=== PATIENT | male | born 1965 | race Caucasian/White ===

== ENCOUNTER 2016-11-25 02:01 | Emergency (ER) | payer BC ==
[2016-11-25 02:07] VITALS: BP 168/77; PULSE 51; RESP 16; TEMP 96.8
[2016-11-25] MEDS ORDERED: HYDROcodone/APAP 5-325MG 1 EACH TAB PO STA (02:32)
--- NOTE | 2016-11-25 02:36 | ED ---
ENT HPI - General Chief complaint: ENT Stated complaint: dental pain Time Seen by Provider: 11/25/16 02:10 Source: patient, RN notes reviewed Mode of arrival: ambulatory Limitations: no limitations - History of Present Illness Initial comments: Patient is a 51-year-old male presents emergency room for evaluation of dental pain. Patient states began having dental pain on Wednesday. Patient states he recently had a crown placed over that tooth about 4 months ago by his dentist. Patient states that he had a crown placed over the tooth above the tooth that's causing him pain about a week ago. Patient states they had to file the tooth down for the teeth to align and did thinks that his tooth is irritated from it. Patient denies any fevers. Patient states been taking Tylenol with no relief of symptoms. Patient states the pain is radiating down his jaw and up into his right ear. Patient denies any shortness of breath or trouble breathing. Patient denies any drainage from the tooth. Patient denies any recent trauma to that tooth. - Related Data Home Medications Medication Instructions Recorded Confirmed Olmesartan [Benicar] 10 mg 11/25/16 Previous Rx's Medication Instructions Recorded Clindamycin [Cleocin] 300 mg PO Q6H 10 Days 11/25/16 HYDROcodone/APAP 5-325MG [[place] 1 tab PO Q6HR PRN #12 tab 11/25/16 5-325] Allergies Allergy/AdvReac Type Severity Reaction Status Date / Time amoxicillin [From Augmentin] Allergy Severe Confusion Verified 11/25/16 02:07 clavulanic acid Allergy Severe Confusion Verified 11/25/16 02:07 [From Augmentin] Review of Systems ROS Statement: Those systems with pertinent positive or pertinent negative responses have been documented in the HPI. ROS Other: All systems not noted in ROS Statement are negative. Past Medical History Past Medical History: Hypertension History of Any Multi-Drug Resistant Organisms: None Reported Past Surgical History: No Surgical Hx Reported Smoking Status: Never smoker Past Alcohol Use History: None Reported Past Drug Use History: None Reported General Exam - General Exam Comments Initial Comments: Sitting in room in no acute distress. Limitations: no limitations General appearance: alert, in no apparent distress Head exam: Present: atraumatic, normocephalic, normal inspection Eye exam: Present: normal appearance Expanded Teeth exam: Present: dental tenderness # (27), other (No mouth floor tenderness. ) Throat exam: normal inspection Neck exam: Present: normal inspection Respiratory exam: Present: normal lung sounds bilaterally. Absent: respiratory distress Cardiovascular Exam: Present: regular rate, normal rhythm, normal heart sounds Extremities exam: Present: normal inspection Back exam: Present: normal inspection Neurological exam: Present: alert, oriented X3, CN II-XII intact, normal gait Psychiatric exam: Present: normal affect, normal mood Skin exam: Present: warm, dry, intact, normal color. Absent: rash Course Vital Signs 11/25/16 02:04 Temperature 96.8 F L Pulse Rate 51 L Respiratory 16 Rate Blood Pressure 168/77 O2 Sat by Pulse 99 Oximetry Medical Decision Making - Medical Decision Making Patient is a 51-year-old male presents emergency room for evaluation of dental pain. Patient states he is going to call his dentist tomorrow morning. Will place patient on antibiotics and pain medications. Return parameters discussed. Case discussed Dr. Bull. Disposition Clinical Impression: Pain, dental Disposition: HOME SELF-CARE Condition: Good Instructions: Toothache (ED) Additional Instructions: Please follow up with a dentist. If you do not have a dentist, you may contact [facility]. Phone number is [phone] for existing clients. For new clients you may call [phone]. Another option is you have is the [facility]. Phone number is [phone]. Medications as directed. [place] gargles. Cold fluids can sometimes help with pain as well. Return to the Emergency Room for any worsening or changing symptoms. Use cold compresses to the outside of the face. Prescriptions: HYDROcodone/APAP 5-325MG [[place] 5-325] 1 tab PO Q6HR PRN #12 tab PRN Reason: Pain Clindamycin [Cleocin] 300 mg PO Q6H 10 Days Referrals: Wiley Kidd DO [Primary Care Provider] - 1-2 days Time of Disposition: 02:34
[2016-11-25] MEDS ORDERED: CLINDAMYCIN 150 MG CAP PO STA (02:37)
== END 2016-11-25 02:44 | disposition home or self-care (01) ==
LOC: EC 02:01
DX: K08.89 Other specified disorders of teeth and supporting structures (principal); Z88.1 Allergy status to other antibiotic agents; Z88.0 Allergy status to penicillin
CPT/HCPCS: 99282

== ENCOUNTER → 2018-08-16 | Outpatient (CLI) | payer BC ==
--- NOTE | 2018-08-16 11:02 | XR ---
Left foot HISTORY: Heel pain, plantar fasciitis 2 views of the left foot There is a plantar calcaneal spur. Some mild arthropathy change is present at the tibiotalar joint. A lignment, joint spaces, bone mineralization are maintained. IMPRESSION: Plantar calcaneal spur.
== END | disposition home or self-care (01) ==
LOC: RADXRYALE 09:03
PROVIDERS: ATTEND Physician Assistant Medical
DX: M77.32 Calcaneal spur, left foot (principal)

== ENCOUNTER → 2019-10-17 | Outpatient (CLI) | payer BC ==
--- NOTE | 2019-10-18 07:41 | ECHOF ---
Referral Reason:R01.1 Cardiac murmur unspecified MEASUREMENTS -------- HEIGHT: 182.9 cm WEIGHT: 113.4 kg BP: RVIDd: 3.7 cm (< 3.3) IVSd: 1.4 cm (0.6 - 1.1) LVIDd: 3.3 cm (3.9 - 5.3) LVPWd: 1.3 cm (0.6 - 1.1) IVSs: 1.4 cm LVIDs: 2.6 cm LVPWs: 1.6 cm LA Diam: 3.1 cm (2.7 - 3.8) LAESV Index (A-L): 24.71 ml/m Ao Diam: 2.9 cm (2.0 - 3.7) AV Cusp: 1.6 cm (1.5 - 2.6) LA Diam: 3.4 cm (2.7 - 3.8) MV EXCURSION: 17.354 mm (> 18.000) MV EF SLOPE: 72 mm/s (70 - 150) EPSS: 0.5 cm MV E Adelfo: 0.74 m/s MV DecT: 229 ms MV A Adelfo: 0.72 m/s MV E/A Ratio: 1.04 AV maxP.14 mmHg AV meanP.38 mmHg AR PHT: 1160 ms RAP: 5.00 mmHg RVSP: 16.53 mmHg FINDINGS -------- Sinus rhythm. This was a technically good study. The left ventricular size is normal. There is moderate concentric left ventricular hypertrophy. O verall left ventricular systolic function is normal with, an EF between 55 - 60 %. The diastolic fi lling pattern is normal for the age of the patient 11.26. The right ventricle is normal in size. The left atrial size is normal. Normal LA size by volume 22+/-6 ml/m2. The right atrial size is normal. Trace to mild aortic regurgitation. There is mild aortic stenosis present. Peak/mean gradient acr oss the Aortic Valve is 22.14mmHg / 10.38mmHg. Mild mitral annular calcification present. Mild mitral regurgitation is present. Mild tricuspid regurgitation present. Right ventricular systolic pressure is normal at < 35 mmHg. There is no evidence of pulmonary hypertension. There is no pulmonic regurgitation present. The aortic root size is normal. There is no pericardial effusion. CONCLUSIONS -------- 1. Sinus rhythm. 2. This was a technically good study. 3. The left ventricular size is normal. 4. There is moderate concentric left ventricular hypertrophy. 5. Overall left ventricular systolic function is normal with, an EF between 55 - 60 %. 6. The diastolic filling pattern is normal for the age of the patient 11.26 7. The right ventricle is normal in size. 8. The left atrial size is normal. 9. Normal LA size by volume 22+/-6 ml/m2. 10. The right atrial size is normal. 11. Trace to mild aortic regurgitation. 12. There is mild aortic stenosis present. 13. Peak/mean gradient across the Aortic Valve is 22.14mmHg / 10.38mmHg. 14. Mild mitral annular calcification present. 15. Mild mitral regurgitation is present. 16. Mild tricuspid regurgitation present. 17. Right ventricular systolic pressure is normal at < 35 mmHg. 18. There is no evidence of pulmonary hypertension. 19. There is no pulmonic regurgitation present. 20. The aortic root size is normal. 21. There is no pericardial effusion. SILK SCREEN PRINTER HELPER: Sol Pabon RDCS
== END | disposition home or self-care (01) ==
LOC: RADECHMAIN 16:06
PROVIDERS: ATTEND Family Medicine
DX: I08.3 Combined rheumatic disorders of mitral, aortic and tricuspid valves (principal)
CPT/HCPCS: 93306

== ENCOUNTER 2020-05-31 20:59 | Inpatient (IN) | payer BC ==
[2020-05-31] MEDS ORDERED: ONDANSETRON 4 MG/2 ML VIAL IVP STA (21:19)
[2020-05-31] MEDS ORDERED: SODIUM CHLORIDE 0.9% 1,000 ML IV STA (21:19)
[2020-05-31] MEDS ORDERED: MORPHINE SULFATE 4 MG/ML SYRINGE IV STA (21:19)
[2020-05-31] MEDS ORDERED: ASPIRIN 81 MG PO STA (22:19)
[2020-05-31] MEDS ORDERED: NITROGLYCERIN SL TABS 0.4 MG TAB SUBLINGUAL PRN (22:19)
[2020-05-31 22:22] LABS: Basophils # (A) 0.1 k/uL (0-0.2); Basophils % (A) 0 %; Eosinophils # (A) 0.2 k/uL (0-0.7); Eosinophils % (A) 2 %; HCT 47.3 % (39.0-53.0); HGB 15.3 gm/dL (13.0-17.5); Lymphocytes # (A) 1.4 k/uL (1.0-4.8); Lymphocytes % (A) 11 %; MCH 29.4 pg (25.0-35.0); MCHC 32.4 g/dL (31.0-37.0); MCV 90.9 fL (80.0-100.0); Mean Platelet Volume 7.3; Monocytes # (A) 0.6 k/uL (0-1.0); Monocytes % (A) 5 %; Neutrophils # (A) 10.1 k/uL (1.3-7.7); Neutrophils % (A) 81 %; Platelet Count 287 k/uL (150-450); RBC 5.21 m/uL (4.30-5.90); RDW 12.5 % (11.5-15.5); WBC 12.4 k/uL (3.8-10.6)
[2020-05-31 22:32] LABS: Sodium 137 mmol/L (137-145)
[2020-05-31 22:35] LABS: ALT 49 U/L (4-49); AST 35 U/L (17-59); African American GFR (CKD) >90 (>60 ml/min/1.73 sqM); Albumin 4.8 g/dL (3.5-5.0); Alkaline Phosphatase 84 U/L (38-126); Anion Gap 7 mmol/L; Blood Urea Nitrogen 22 mg/dL (9-20); Calcium 9.8 mg/dL (8.4-10.2); Carbon Dioxide 30 mmol/L (22-30); Chloride 100 mmol/L (98-107); Glucose 141 mg/dL (74-99); Non-African American GFR(CKD) 84 (>60 ml/min/1.73 sqM); Potassium 4.4 mmol/L (3.5-5.1); Total Bilirubin 0.8 mg/dL (0.2-1.3); Total Protein 8.1 g/dL (6.3-8.2)
[2020-05-31 23:05] LABS: INR 1.3 (<1.2); Partial Thromboplastin Time 26.8 sec (22.0-30.0); Prothrombin Time 13.1 sec (9.0-12.0)
--- NOTE | 2020-05-31 23:12 | CT ---
EXAMINATION TYPE: CT abdomen pelvis w con DATE OF EXAM: 05/31/2020 COMPARISON: None HISTORY: abdominal pain CT DLP: combined DLP 2548.6 mGycm Automated exposure control for dose reduction was used. CONTRAST: Performed with IV Contrast, patient injected with 100 mL of Isovue 370. Lung bases are clear. There is no pleural effusion. Heart size is normal. There is no pericardial eff usion. Liver spleen stomach. Pancreas gallbladder appear normal. Bile ducts are nondilated. There is no adrenal mass. Kidneys show satisfactory contrast opacification. There is no hydronephrosi s. Ureters are not dilated. There is no retroperitoneal adenopathy. Delayed images show normal renal excretion. Bladder distends smoothly. There is no inguinal hernia. There is no free fluid in the pelv is. There are multiple dilated fluid-filled loops of small bowel in the mid abdomen. Distal small bow el is not dilated. There is no evidence of thickened appendix. Small bowel is dilated up to 3.6 cm. Lumbar vertebra have normal alignment. There is narrowing of L5-S1 disc space. Bony pelvis is intact. IMPRESSION: Dilated mid and proximal small bowel consistent with mechanical small bowel obstruction. Transition p oint not identified.
--- NOTE | 2020-05-31 23:18 | ED ---
General Adult HPI - General Source: patient, RN notes reviewed, old records reviewed Mode of arrival: ambulatory Limitations: no limitations <Kevin Parkinson - Last Filed: 05/31/20 23:32> <Gaudencio Bull - Last Filed: 06/06/20 07:30> - General Chief complaint: Nausea/Vomiting/Diarrhea Stated complaint: Abd Pain Time Seen by Provider: 05/31/20 21:15 - History of Present Illness Initial comments: 55-year-old male patient with the for evaluation of lower abdominal pain. Patient reports the pain began at 1 p.m. today. Reports the abdomen feels distended. Patient states he has nausea without emesis. Had a bowel movement earlier today that was normal prior to the onset of pain. Systemic: Pt denies fatigue, fever/chills, rash. Pt denies weakness, night sweats, weight loss. Neuro: Pt denies headache, visual disturbances, syncope or pre-syncope. HEENT: Pt denies ocular discharge or irritation, otalgia, rhinorrhea, pharyngitis or notable lymphadenopathy. Cardiopulmonary: Pt denies chest pain, SOB, heart palpitations, dyspnea on exertion. Abdominal/GI: Pt denies v/d. : Pt denies dysuria, burning w/ urination, frequency/urgency. Denies new onset urinary or bowel incontinence. MSK: Pt denies myalgia, loss of strength or function in extremities. Neuro: Pt denies new onset weakness, paresthesias. (Kevin Parkinson) - Related Data Home Medications Medication Instructions Recorded Confirmed Losartan Potassium 100 mg PO DAILY 05/31/20 05/31/20 Potassium Gluconate 99 mg PO DAILY 05/31/20 05/31/20 Vit A/Vit C/Vit E/Zinc/Copper 1 cap PO DAILY 05/31/20 05/31/20 [ICAPS SOFTGEL] hydroCHLOROthiazide 25 mg PO DAILY 05/31/20 05/31/20 Fexofenadine/Pseudoephedrine 1 tab PO DAILY 06/01/20 06/01/20 [Farheen-D 24 Hour Tablet] Naproxen Sodium [Aleve] 1 tab PO DAILY 06/01/20 06/01/20 Previous Rx's Medication Instructions Recorded Acetaminophen Tab [Tylenol] 650 mg PO Q4HR PRN tab 06/05/20 Pantoprazole Sodium [Protonix] 40 mg PO DAILY #30 tablet. 06/05/20 Allergies Allergy/AdvReac Type Severity Reaction Status Date / Time amoxicillin [From Augmentin] Allergy Severe Confusion Verified 05/31/20 21:37 clavulanic acid Allergy Severe Confusion Verified 05/31/20 21:37 [From Augmentin] Review of Systems ROS Other: All systems not noted in ROS Statement are negative. <Kevin Parkinson - Last Filed: 05/31/20 23:32> ROS Other: All systems not noted in ROS Statement are negative. <Gaudencio Bull - Last Filed: 06/06/20 07:30> ROS Statement: Those systems with pertinent positive or pertinent negative responses have been documented in the HPI. Past Medical History Past Medical History: Hypertension History of Any Multi-Drug Resistant Organisms: None Reported Past Surgical History: No Surgical Hx Reported Past Psychological History: No Psychological Hx Reported Smoking Status: Never smoker Past Alcohol Use History: None Reported Past Drug Use History: None Reported <Kevin Parkinson - Last Filed: 05/31/20 23:32> - Past Family History Mother Additional Family Medical History / Comment(s): valve replacement on heart <Gaudencio Bull - Last Filed: 06/06/20 07:30> General Exam Limitations: no limitations <Kevin Parkinson - Last Filed: 05/31/20 23:32> - General Exam Comments Initial Comments: Constitutional: NAD, AOX3, Pt has pleasant affect. HEENT: NC/AT, trachea midline, neck supple, no lymphadenopathy. External ears appear normal, without discharge. Mucous membranes moist. Eyes PERRLA, EOM intact. There is no scleral icterus. No pallor noted. Cardiopulmonary: RRR, no murmurs, rubs or gallops, no JVD noted. Lungs CTAB in anterior and posterior newberry. No peripheral edema. Abdominal exam: Abdomen soft and mildly distended. Abdomen mildly diffusely tender to palpation. No hepatosplenomegaly. No ecchymosis Neuro: CN II-XII grossly intact. No nuchal rigidity. MSK: No posterior calf tenderness bilaterally, homans sign negative bilaterally. Sensation intact in upper and lower extremities. Full active ROM in upper and lower extremities, 5/5 stregnth. (Kevin Parkinson) Course Vital Signs 05/31/20 06/01/20 21:00 00:00 Temperature 98.3 F Pulse Rate 65 67 Respiratory 20 18 Rate Blood Pressure 135/90 140/80 O2 Sat by Pulse 95 95 Oximetry Medical Decision Making - Lab Data Result diagrams: 05/31/20 22:06 05/31/20 22:06 - EKG Data -: EKG Interpreted by Me (and Dr. Dougherty ) <Kevin Parkinson - Last Filed: 05/31/20 23:32> - Lab Data Result diagrams: 06/04/20 05:54 06/04/20 05:54 <Gaudencio Bull - Last Filed: 06/06/20 07:30> - Medical Decision Making 55-year-old male patient with the chief complaint of one day of abdominal pain. Approximately 8 hours total. Patient will signs are stable, afebrile. Physical exam displayed a mildly distended and mildly diffusely tender abdomen. EKG was performed. This was interpreted by the computer as an acute ST elevated ND. With some perceived ST elevation in V2 and V3. Patient not having any chest pain And there are no reciprocal changes. EKG was promptly displayed to Dr. Dougherty who consulted cardiology, Dr. Zimmerman reviewed ekg and does not believe this is consistent with ischemia. CT chest angiography as well as CT abdomen with pelvis was obtained. This is significant for a small bowel obstruction no clear transition point seen. Patient has a history of umbilical hernia repair about 12 years ago. An NG tube was placed and patient will be admitted for small bowel obstruction. Patient is resting comfortable at this time. Case discussed and pt seen by Dr. Dougherty. (Kevin Parkinson) I saw this patient in conjunction with the physician engineer assistant. I performed independent history and physical exam. Agree with case management. (Gaudencio Bull) - Lab Data Lab Results 05/31/20 05/31/20 05/31/20 Range/Units 22:06 22:06 22:06 WBC 12.4 H (3.8-10.6) k/uL RBC 5.21 (4.30-5.90) m/uL Hgb 15.3 (13.0-17.5) gm/dL Hct 47.3 (39.0-53.0) % MCV 90.9 (80.0-100.0) fL MCH 29.4 (25.0-35.0) pg MCHC 32.4 (31.0-37.0) g/dL RDW 12.5 (11.5-15.5) % Plt Count 287 (150-450) k/uL Neutrophils % 81 % Lymphocytes % 11 % Monocytes % 5 % Eosinophils % 2 % Basophils % 0 % Neutrophils # 10.1 H (1.3-7.7) k/uL Lymphocytes # 1.4 (1.0-4.8) k/uL Monocytes # 0.6 (0-1.0) k/uL Eosinophils # 0.2 (0-0.7) k/uL Basophils # 0.1 (0-0.2) k/uL PT (9.0-12.0) sec INR (<1.2) APTT (22.0-30.0) sec Sodium 137 (137-145) mmol/L Potassium 4.4 (3.5-5.1) mmol/L Chloride 100 (98-107) mmol/L Carbon Dioxide 30 (22-30) mmol/L Anion Gap 7 mmol/L BUN 22 H (9-20) mg/dL Creatinine 1.00 (0.66-1.25) mg/dL Est GFR (CKD-EPI)AfAm >90 (>60 ml/min/1.73 sqM) Est GFR (CKD-EPI)NonAf 84 (>60 ml/min/1.73 sqM) Glucose 141 H (74-99) mg/dL Plasma Lactic Acid Jeff 1.5 (0.7-2.0) mmol/L Calcium 9.8 (8.4-10.2) mg/dL Total Bilirubin 0.8 (0.2-1.3) mg/dL AST 35 (17-59) U/L ALT 49 (4-49) U/L Alkaline Phosphatase 84 (38-126) U/L Troponin I (0.000-0.034) ng/mL Total Protein 8.1 (6.3-8.2) g/dL Albumin 4.8 (3.5-5.0) g/dL Lipase 86 (23-300) U/L 05/31/20 05/31/20 Range/Units 22:06 22:52 WBC (3.8-10.6) k/uL RBC (4.30-5.90) m/uL Hgb (13.0-17.5) gm/dL Hct (39.0-53.0) % MCV (80.0-100.0) fL MCH (25.0-35.0) pg MCHC (31.0-37.0) g/dL RDW (11.5-15.5) % Plt Count (150-450) k/uL Neutrophils % % Lymphocytes % % Monocytes % % Eosinophils % % Basophils % % Neutrophils # (1.3-7.7) k/uL Lymphocytes # (1.0-4.8) k/uL Monocytes # (0-1.0) k/uL Eosinophils # (0-0.7) k/uL Basophils # (0-0.2) k/uL PT 13.1 H (9.0-12.0) sec INR 1.3 H (<1.2) APTT 26.8 (22.0-30.0) sec Sodium (137-145) mmol/L Potassium (3.5-5.1) mmol/L Chloride (98-107) mmol/L Carbon Dioxide (22-30) mmol/L Anion Gap mmol/L BUN (9-20) mg/dL Creatinine (0.66-1.25) mg/dL Est GFR (CKD-EPI)AfAm (>60 ml/min/1.73 sqM) Est GFR (CKD-EPI)NonAf (>60 ml/min/1.73 sqM) Glucose (74-99) mg/dL Plasma Lactic Acid Jeff (0.7-2.0) mmol/L Calcium (8.4-10.2) mg/dL Total Bilirubin (0.2-1.3) mg/dL AST (17-59) U/L ALT (4-49) U/L Alkaline Phosphatase (38-126) U/L Troponin I <0.012 (0.000-0.034) ng/mL Total Protein (6.3-8.2) g/dL Albumin (3.5-5.0) g/dL Lipase (23-300) U/L - EKG Data EKG Comments: Ventricular rate 55 bpm, AK interval 182, QRS 80, QT/QTc 400/382, Sinus bradycardia, Some ST elevation noted in V2,V3 this does appear to be early repolarization. No recrprical changes, no other findings consistent with acute ischemia. This was reviewed by cardiology who also believed this to be nonischemic in nature. (Kevin Parkinson) Disposition Is patient prescribed a controlled substance at d/c from ED?: No <Kevin Parkinson - Last Filed: 05/31/20 23:32> <Gaudencio Bull - Last Filed: 06/06/20 07:30> Clinical Impression: Small bowel obstruction Disposition: ADMITTED IP TO THIS HOSP Condition: Serious
--- NOTE | 2020-05-31 23:22 | CT ---
EXAMINATION TYPE: CT chest angio for PE DATE OF EXAM: 05/31/2020 COMPARISON: None HISTORY: chest pain CT DLP: combined DLP 2548.6 mGycm Automated exposure control for dose reduction was used. CONTRAST: Performed with IV Contrast, patient injected with 100 mL of Isovue 370. There are 3-D post processed images. The lungs are clear of consolidation. There is no pleural effusion. There is no evidence of a pulmona ry mass. There is no mediastinal adenopathy. Thoracic aorta is intact. There is no aneurysm or dissec tion. There are no hilar masses. The bony thorax is intact. Thoracic spine is intact. There is normal contrast opacification of the pulmonary arteries. There are no filling defects. IMPRESSION: Negative CT angiogram of the chest. No evidence of pulmonary embolism.
[2020-05-31] MEDS ORDERED: NALOXONE 0.4 MG/ML 1 ML VIAL IV PRN (23:25)
--- NOTE | 2020-06-01 00:41 | XR ---
EXAMINATION TYPE: XR chest 1V confirm line [facility] DATE OF EXAM: 06/01/2020 COMPARISON: NONE HISTORY: Check tube placement TECHNIQUE: Single view FINDINGS: Heart and mediastinum are normal. Lungs are clear. Diaphragm is normal. Bony thorax is norm al. There are chest leads. There is nasogastric tube in the stomach. IMPRESSION: No active cardiopulmonary disease. Nasogastric tube is in the stomach.
[2020-06-01 01:41] LABS: Glucose,Whole Blood 135 mg/dL (75-99)
[2020-06-01] MEDS: SODIUM CHLORIDE 0.9% 1,000 ML IV SCH ×4 (01:54→20:35)
[2020-06-01 06:32] LABS: Glucose,Whole Blood 99 mg/dL (75-99)
[2020-06-01 06:37] LABS: Appearance,Urine Clear (Clear); Bilirubin,Urine Negative (Negative); Blood,Urine Negative (Negative); Color,Urine Yellow; Glucose,Urine (UA) Negative (Negative); Ketones,Urine Negative (Negative); Leukocyte Esterase,Urine Negative (Negative); Nitrite,Urine Negative (Negative); Protein,Urine Trace (Negative); Urobilinogen,Urine <2.0 mg/dL (<2.0)
[2020-06-01 06:40] LABS: Specific Gravity,Urine >1.050 (1.001-1.035)
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
[2020-06-01 11:42] LABS: Glucose,Whole Blood 97 mg/dL (75-99)
[2020-06-01] MEDS ORDERED: ALPRAZolam 0.25 MG TAB PO PRN (16:00)
[2020-06-01] MEDS ORDERED: TEMAZEPAM 15 MG CAP PO PRN (16:00)
[2020-06-01] MEDS ORDERED: hydrALAZINE HCL 20 MG/ML 1 ML VIAL IVP PRN (16:00)
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
[2020-06-01 17:19] LABS: Glucose,Whole Blood 90 mg/dL (75-99)
[2020-06-01] MEDS: PANTOPRAZOLE 40 MG/10 ML VIAL IVP SCH ×2 (18:09→20:34)
[2020-06-02 00:18] LABS: Glucose,Whole Blood 86 mg/dL (75-99)
[2020-06-02 06:35] LABS: Glucose,Whole Blood 87 mg/dL (75-99)
[2020-06-02 06:54] LABS: Basophils % (A) 0 %; Eosinophils # (A) 0.5 k/uL (0-0.7); Eosinophils % (A) 5 %; HCT 42.8 % (39.0-53.0); Lymphocytes # (A) 2.1 k/uL (1.0-4.8); Lymphocytes % (A) 20 %; MCH 30.7 pg (25.0-35.0); MCHC 32.7 g/dL (31.0-37.0); MCV 93.8 fL (80.0-100.0); Mean Platelet Volume 7.5; Monocytes # (A) 0.7 k/uL (0-1.0); Monocytes % (A) 6 %; Neutrophils # (A) 7.1 k/uL (1.3-7.7); Neutrophils % (A) 68 %; Platelet Count 229 k/uL (150-450); RBC 4.56 m/uL (4.30-5.90); WBC 10.5 k/uL (3.8-10.6)
[2020-06-02] MEDS ORDERED: ACETAMINOPHEN TAB 325 MG TAB PO PRN (09:17)
[2020-06-02] MEDS: PANTOPRAZOLE 40 MG/10 ML VIAL IVP SCH ×2 (09:34→20:19)
[2020-06-02] MEDS: SODIUM CHLORIDE 0.9% 1,000 ML IV SCH ×2 (09:40→20:22)
[2020-06-02 09:41] LABS: Anion Gap 6.2 mmol/L (4.00-12.00); BUN/Creat Ratio 17.78 Ratio (12.00-20.00); Calcium 8.5 mg/dL (8.7-10.3); Carbon Dioxide 27.8 mmol/L (21.6-31.8); Non-African American GFR(CKD) 95.8 (60.0-200.0); Potassium 3.9 mmol/L (3.5-5.5)
--- NOTE | 2020-06-02 10:18 | P.PN ---
Subjective Progress Note Date: 06/02/20 Patient feeling better today, passing small amount of flatus. No BM. 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 [id number] TOÑO Rx#:[id number] Output: Gastric Drainage 350 350 Urine 775 Other: Voiding Method Toilet Toilet Urinal Urinal # Voids 3 - Constitutional General appearance: Present: cooperative - Respiratory Details: nonlabored - Cardiovascular Rhythm: regular - Gastrointestinal Gastrointestinal Comment(s): soft, distention improved. nontender - Psychiatric Psychiatric: Present: A&O x's 3 - Labs CBC & Chem 7: 06/02/20 06:10 06/02/20 06:10 Labs: Abnormal Lab Results - Last 24 Hours (Table) 06/02/20 Range/Units 06:10 Calcium 8.5 L (8.7-10.3) mg/dL Assessment and Plan Assessment: SBO Plan: SBO likely secondary to adhesions from previous surgery. Cont with NGT until further bowel function returns. No plans for acute surgical intervention at this time. Will continue to follow
[2020-06-02 12:27] LABS: Glucose,Whole Blood 82 mg/dL (75-99)
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
[2020-06-02] MEDS ORDERED: BENZOCAINE SPRAY 1 CAN MUCOUS MEM PRN (19:30)
[2020-06-02 22:50] LABS: INR 0.97 (0.90-1.11); Prothrombin Time 10.4 sec (9.9-11.9)
[2020-06-03 06:04] LABS: Basophils % (A) 0 %; Eosinophils # (A) 0.5 k/uL (0-0.7); Eosinophils % (A) 5 %; HCT 41.8 % (39.0-53.0); HGB 13.8 gm/dL (13.0-17.5); Lymphocytes # (A) 2.1 k/uL (1.0-4.8); Lymphocytes % (A) 18 %; MCH 30.5 pg (25.0-35.0); MCV 92.3 fL (80.0-100.0); Mean Platelet Volume 7.4; Monocytes # (A) 0.7 k/uL (0-1.0); Monocytes % (A) 6 %; Neutrophils # (A) 7.9 k/uL (1.3-7.7); Neutrophils % (A) 70 %; Platelet Count 219 k/uL (150-450); RBC 4.53 m/uL (4.30-5.90); RDW 12.5 % (11.5-15.5); WBC 11.3 k/uL (3.8-10.6)
[2020-06-03] MEDS: PANTOPRAZOLE 40 MG/10 ML VIAL IVP SCH ×2 (08:19→19:57)
[2020-06-03 09:07] LABS: Anion Gap 8.4 mmol/L (4.00-12.00); BUN/Creat Ratio 16.67 Ratio (12.00-20.00); Calcium 8.6 mg/dL (8.7-10.3); Carbon Dioxide 26.6 mmol/L (21.6-31.8); Non-African American GFR(CKD) 95.8 (60.0-200.0); Potassium 3.9 mmol/L (3.5-5.5)
--- NOTE | 2020-06-03 11:28 | XR ---
EXAMINATION TYPE: XR abdomen 1V DATE OF EXAM: 06/03/2020 COMPARISON: NONE HISTORY: Abdominal pain TECHNIQUE: One view abdominal series FINDINGS: The osseous structures are intact. The bowel gas pattern is nonspecific. Arthropathy of the hips. 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 Suggestion of possible NG tube at the level of the distal esophagus. IMPRESSION: 1. NG tube appears only at the level of the distal esophagus correlate for advancement repositioning. . Gas pattern is nonspecific with retained fecal debris throughout the colon.
[2020-06-03] MEDS: SODIUM CHLORIDE 0.9% 1,000 ML IV SCH (14:36)
[2020-06-03] MEDS ORDERED: ONDANSETRON 4 MG/2 ML VIAL IVP PRN (14:44)
[2020-06-03] MEDS: MORPHINE SULFATE 4 MG/ML SYRINGE IVP PRN ×2 (14:49→22:23)
--- NOTE | 2020-06-03 15:51 | P.PN ---
Subjective Progress Note Date: 06/03/20 Patient denies Bm only minimal flatus today, no complaints of pain. Objective - Vital Signs Vital signs: Vital Signs Temp 98.4 F 06/03/20 12:20 Pulse 76 06/03/20 12:20 Resp 16 06/03/20 12:20 BP 144/75 06/03/20 12:20 Pulse Ox 97 06/03/20 12:20 Intake & Output 06/02/20 06/03/20 06/03/20 18:59 06:59 18:59 Intake Total 900 600 Output Total 1000 910 Balance -1000 -10 600 Intake: Intake, IV Titration 900 600 Amount Sodium Chloride 0.9% 1, 900 600 000 ml @ 75 mls/hr IV . [id number] TOÑO Rx#:[id number] Output: Gastric Drainage 310 Urine 1000 600 Other: Voiding Method Toilet Urinal Urinal Urinal # Voids 1 - Constitutional General appearance: Present: cooperative - Cardiovascular Rhythm: regular - Gastrointestinal Gastrointestinal Comment(s): soft, NT, mild distention - Psychiatric Psychiatric: Present: A&O x's 3 - Labs CBC & Chem 7: 06/03/20 05:04 06/03/20 05:04 Labs: Abnormal Lab Results - Last 24 Hours (Table) 06/03/20 06/03/20 Range/Units 05:04 05:04 WBC 11.3 H (3.8-10.6) k/uL Neutrophils # 7.9 H (1.3-7.7) k/uL Calcium 8.6 L (8.7-10.3) mg/dL Assessment and Plan Assessment: SBO Plan: If patient does not open up tonight will plan for small bowel followthrough tomorrow. Patient has a nonspecific abdomen on xray with gas and stool in colon. He also is soft and nontender. No plans for immediate surgery. Further recs to follow
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
[2020-06-03 21:37] LABS: Glucose,Whole Blood 76 mg/dL (75-99)
[2020-06-04] MEDS: SODIUM CHLORIDE 0.9% 1,000 ML IV SCH ×2 (03:48→17:30)
[2020-06-04 06:40] LABS: Basophils % (A) 0 %; Eosinophils # (A) 0.3 k/uL (0-0.7); Eosinophils % (A) 2 %; Lymphocytes # (A) 1.8 k/uL (1.0-4.8); Lymphocytes % (A) 16 %; MCHC 32.4 g/dL (31.0-37.0); MCV 92.5 fL (80.0-100.0); Mean Platelet Volume 7.5; Monocytes # (A) 0.9 k/uL (0-1.0); Monocytes % (A) 8 %; Neutrophils # (A) 7.9 k/uL (1.3-7.7); Neutrophils % (A) 72 %; Platelet Count 219 k/uL (150-450); RBC 4.32 m/uL (4.30-5.90); RDW 12.2 % (11.5-15.5); WBC 10.9 k/uL (3.8-10.6)
[2020-06-04] MEDS: PANTOPRAZOLE 40 MG/10 ML VIAL IVP SCH ×2 (08:16→21:15)
[2020-06-04 09:06] LABS: Anion Gap 10.8 mmol/L (4.00-12.00); BUN/Creat Ratio 15.56 Ratio (12.00-20.00); Calcium 8.5 mg/dL (8.7-10.3); Carbon Dioxide 25.2 mmol/L (21.6-31.8); Non-African American GFR(CKD) 95.8 (60.0-200.0)
[2020-06-04 13:00] VITALS: BMI 33.5
[2020-06-04] MEDS: BENZOCAINE/MENTHOL LOZENG 1 EACH LOZENGE MUCOUS MEM PRN (13:27)
--- NOTE | 2020-06-04 13:49 | FL ---
EXAMINATION TYPE: FL small bowel follow through DATE OF EXAM: 06/04/2020 COMPARISON: None HISTORY: Small bowel obstruction. Umbilical hernia TECHNIQUE: Single contrast technique is followed the administration of water-soluble contrast is a na sogastric tube. FINDINGS: Fluoroscopy time 18 seconds Images: 9 There is rapid transit of the contrast through the colon. Terminal ileum is identified within 30 monse emmanuel. Small bowel is visualized appears normal. Skull view: Pulmonary abdominal films obtained. The nasogastric tube is within the mid esophagus. The nasogastric tube was advanced by the patient's nurse and contrast was placed through the nasogastric tube. Jejunal and ileal fold pattern appears normal. IMPRESSION: 1. No evidence of small bowel obstruction
[2020-06-04] MEDS ORDERED: PSEUDOEPHEDRINE 12HR 120 MG TABLET.ER PO PRN (16:20)
--- NOTE | 2020-06-04 17:12 | P.PN ---
Subjective Progress Note Date: 06/04/20 Patient doing well, had 3 large BM after small bowel FT. No complaints. NGT pulled and started clears Objective - Vital Signs Vital signs: Vital Signs Temp 98.2 F 06/04/20 13:00 Pulse 64 06/04/20 13:00 Resp 16 06/04/20 13:00 BP 138/71 06/04/20 13:00 Pulse Ox 95 06/04/20 13:00 Intake & Output 06/03/20 06/04/20 06/04/20 18:59 06:59 18:59 Intake Total 600 825 Output Total 200 650 Balance 600 625 -650 Weight 112.037 kg Intake: Intake, IV Titration 600 825 Amount Sodium Chloride 0.9% 1, 600 825 000 ml @ 75 mls/hr IV . [id number] TOÑO Rx#:[id number] Output: Urine 200 650 Other: Voiding Method Urinal Urinal Urinal # Voids 1 - Constitutional General appearance: Present: cooperative - Respiratory Details: nonlabored - Cardiovascular Rhythm: regular - Gastrointestinal Gastrointestinal Comment(s): S/NT/ND - Psychiatric Psychiatric: Present: A&O x's 3 - Labs CBC & Chem 7: 06/04/20 05:54 06/04/20 05:54 Labs: Abnormal Lab Results - Last 24 Hours (Table) 06/04/20 06/04/20 Range/Units 05:54 05:54 WBC 10.9 H (3.8-10.6) k/uL Neutrophils # 7.9 H (1.3-7.7) k/uL Calcium 8.5 L (8.7-10.3) mg/dL Assessment and Plan Assessment: SBO Plan: SBO is resolved, contrast in colon on small bowel followthrough, NGT DC today and start clears. Advance diet as tolerated to soft tomorrow. No plans for surgical intervention, patient will be stable for DC when tolerating soft diet
[2020-06-04] MEDS: LORATADINE 10 MG TAB PO SCH (17:28)
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
[2020-06-05] MEDS: SODIUM CHLORIDE 0.9% 1,000 ML IV SCH ×2 (03:52→17:04)
[2020-06-05] MEDS: BENZOCAINE/MENTHOL LOZENG 1 EACH LOZENGE MUCOUS MEM PRN (03:55)
[2020-06-05] MEDS: LORATADINE 10 MG TAB PO SCH (09:10)
[2020-06-05] MEDS: PANTOPRAZOLE 40 MG/10 ML VIAL IVP SCH ×2 (09:10→20:54)
--- NOTE | 2020-06-05 15:53 | XR ---
2 view abdomen HISTORY: Abnormal CT Correlation to CT scan 05/31/2020 2 views the abdomen submitted on 5 images There is contrast material within the colon extending to the rectum. Lung bases are clear. No evident bowel obstruction or pneumoperitoneum. IMPRESSION: Contrast material has coursed to the level of the rectum.
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
[2020-06-06] MEDS ORDERED: ONDANSETRON 4 MG/2 ML VIAL IVP PRN (02:06)
[2020-06-06] MEDS ORDERED: NALOXONE 0.4 MG/ML 1 ML VIAL IV PRN (02:06)
[2020-06-06] MEDS: SODIUM CHLORIDE 0.9% 1,000 ML IV SCH ×2 (06:05→21:06)
[2020-06-06] MEDS: PANTOPRAZOLE 40 MG/10 ML VIAL IVP SCH ×2 (08:07→20:56)
[2020-06-06] MEDS: LORATADINE 10 MG TAB PO SCH (10:19)
[2020-06-06 11:37] LABS: Basophils % (A) 0 %; Eosinophils # (A) 0.6 k/uL (0-0.7); Eosinophils % (A) 7 %; HCT 42.5 % (39.0-53.0); HGB 13.6 gm/dL (13.0-17.5); Lymphocytes # (A) 2.2 k/uL (1.0-4.8); Lymphocytes % (A) 27 %; MCH 29.4 pg (25.0-35.0); Mean Platelet Volume 7.6; Monocytes # (A) 0.4 k/uL (0-1.0); Monocytes % (A) 5 %; Neutrophils # (A) 4.9 k/uL (1.3-7.7); Neutrophils % (A) 60 %; Platelet Count 277 k/uL (150-450); RBC 4.62 m/uL (4.30-5.90); RDW 12.5 % (11.5-15.5); WBC 8.1 k/uL (3.8-10.6)
--- NOTE | 2020-06-06 11:48 | P.PN ---
Subjective Progress Note Date: 06/06/20 Patient did not tolerate soft diet, he is now complaining of abdominal bloating Objective - Vital Signs Vital signs: Vital Signs Temp 97.9 F 06/06/20 04:46 Pulse 55 L 06/06/20 04:46 Resp 15 06/06/20 04:46 BP 130/72 06/06/20 04:46 Pulse Ox 97 06/06/20 04:46 Intake & Output 06/05/20 06/06/20 06/06/20 18:59 06:59 18:59 Intake Total 800 900 Output Total 250 Balance 550 900 Intake: Intake, IV Titration 900 Amount Sodium Chloride 0.9% 1, 900 000 ml @ 75 mls/hr IV . [id number] TOÑO Rx#:[id number] Oral 800 Output: Urine 250 Other: Voiding Method Toilet Toilet # Voids 2 0 # Bowel Movements 0 - Constitutional General appearance: Present: cooperative - Respiratory Details: nonlabored - Cardiovascular Rhythm: regular - Gastrointestinal Gastrointestinal Comment(s): S/distended, nontender - Labs CBC & Chem 7: 06/06/20 11:10 06/04/20 05:54 Assessment and Plan Assessment: Partial SBO Plan: Patient bowel obstruction was resolved, he has a nonobstructive patern on xray and small bowel followthrough showed contrast through to the colon. However sharon ent is now distended again if he does not open up by tomorrow will plan for CT abd/pelvis
--- NOTE | 2020-06-06 11:49 | P.PN ---
Subjective Progress Note Date: 06/06/20 No change overnight, no NV but no Bowel function Objective - Vital Signs Vital signs: Vital Signs Temp 98.3 F 06/06/20 11:46 Pulse 53 L 06/06/20 11:46 Resp 15 06/06/20 11:46 BP 142/85 06/06/20 11:46 Pulse Ox 96 06/06/20 11:46 Intake & Output 06/05/20 06/06/20 06/06/20 18:59 06:59 18:59 Intake Total 800 900 Output Total 250 Balance 550 900 Intake: Intake, IV Titration 900 Amount Sodium Chloride 0.9% 1, 900 000 ml @ 75 mls/hr IV . [id number] TOÑO Rx#:[id number] Oral 800 Output: Urine 250 Other: Voiding Method Toilet Toilet # Voids 2 0 # Bowel Movements 0 - Constitutional General appearance: Present: cooperative - Respiratory Details: nonlabored - Gastrointestinal Gastrointestinal Comment(s): S/NT distended - Labs CBC & Chem 7: 06/06/20 11:10 06/04/20 05:54 Assessment and Plan Assessment: Partial SBO Plan: CT abdomen pelvis today, further recs to follow.
[2020-06-06 11:57] LABS: ALT 24 U/L (4-49); AST 21 U/L (17-59); African American GFR (CKD) >90 (>60 ml/min/1.73 sqM); Albumin 3.9 g/dL (3.5-5.0); Albumin/Globulin Ratio 1.3; Alkaline Phosphatase 63 U/L (38-126); Anion Gap 6 mmol/L; Blood Urea Nitrogen 10 mg/dL (9-20); Carbon Dioxide 30 mmol/L (22-30); Chloride 104 mmol/L (98-107); Globulin 3.1 g/dL; Glucose 99 mg/dL (74-99); Non-African American GFR(CKD) >90 (>60 ml/min/1.73 sqM); Potassium 4.1 mmol/L (3.5-5.1); Sodium 140 mmol/L (137-145); Total Bilirubin 0.7 mg/dL (0.2-1.3)
[2020-06-06] MEDS: IOPAMIDOL CONTRAST (ORAL USE) VIAL PO PRN ×2 (12:04→12:57)
--- NOTE | 2020-06-06 16:16 | CT ---
EXAMINATION TYPE: CT abdomen pelvis w con DATE OF EXAM: 06/06/2020 COMPARISON: 05/31/2020 INDICATION: Recent SBO. Abdominal distention and pain. DLP: 1759.6 mGycm, Automated exposure control for dose reduction was used. CONTRAST: 100 mL of Isovue 300. Study performed with Oral Contrast TECHNIQUE: Axial images were obtained from above the diaphragm to the pubic rami in the axial plane a t 5 mm thick sections. Reconstructed images are reviewed on the computer in the coronal plane. FINDINGS: Small hiatal hernia is present Limited CT sections are obtained the lung bases. The lung bases are clear. CT ABDOMEN: Liver: Normal fatty infiltration liver may be present. Spleen: Normal Pancreas: Normal Adrenal glands: The adrenal glands are normal. Gallbladder: Normal Kidneys: No masses are evident. No hydronephrosis is present. No cysts are present. Delayed images were obtained through the kidneys, which remain unremarkable. Aorta: Normal Inferior vena cava: Normal. CT PELVIS: Loops of bowel within the abdomen and pelvis are normal. Oral contrast extends to to the rectum. No s uspicious dilated small bowel loops are evident. The colon is nondistended. There are loops of bow el which are incompletely distended or lack oral contrast limiting their evaluation. Appendix: Normal as visualized. Small portions visualized. No dilated tubular structures or inflammat ory changes are evident Urinary bladder: Normal. Genitourinary structures: Prostate is normal Osseous structures: No suspicious lytic or sclerotic lesions. IMPRESSIONS: 1. Unremarkable CT abdomen pelvis 2. Resolution previous small bowel obstruction
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
[2020-06-07 06:17] LABS: Basophils % (A) 0 %; Eosinophils # (A) 0.5 k/uL (0-0.7); Eosinophils % (A) 7 %; HCT 39.6 % (39.0-53.0); HGB 12.9 gm/dL (13.0-17.5); Lymphocytes % (A) 27 %; MCH 29.5 pg (25.0-35.0); MCHC 32.5 g/dL (31.0-37.0); MCV 90.8 fL (80.0-100.0); Mean Platelet Volume 7.6; Monocytes # (A) 0.4 k/uL (0-1.0); Monocytes % (A) 6 %; Neutrophils # (A) 4.3 k/uL (1.3-7.7); Neutrophils % (A) 59 %; Platelet Count 261 k/uL (150-450); RBC 4.36 m/uL (4.30-5.90); RDW 11.9 % (11.5-15.5); WBC 7.3 k/uL (3.8-10.6)
[2020-06-07] MEDS: LORATADINE 10 MG TAB PO SCH (08:50)
[2020-06-07] MEDS: PANTOPRAZOLE 40 MG/10 ML VIAL IVP SCH ×2 (08:50→20:09)
[2020-06-07 09:36] LABS: Anion Gap 8.8 mmol/L (4.00-12.00); Calcium 8.8 mg/dL (8.7-10.3); Carbon Dioxide 27.2 mmol/L (21.6-31.8); Non-African American GFR(CKD) 95.8 (60.0-200.0); Potassium 4.1 mmol/L (3.5-5.5)
--- NOTE | 2020-06-07 11:33 | P.PN ---
Subjective Progress Note Date: 06/07/20 Had BM this AM. no NV. No obstructive signs on CT Objective - Vital Signs Vital signs: Vital Signs Temp 98.2 F 06/07/20 05:00 Pulse 51 L 06/07/20 05:00 Resp 18 06/07/20 05:00 BP 148/79 06/07/20 05:00 Pulse Ox 95 06/07/20 05:00 Intake & Output 06/06/20 06/07/20 06/07/20 18:59 06:59 18:59 Intake Total 900 Balance 900 Weight 112.037 kg Intake: Intake, IV Titration 900 Amount Sodium Chloride 0.9% 1, 900 000 ml @ 75 mls/hr IV . [id number] TOÑO Rx#:[id number] Other: Voiding Method Toilet Toilet # Voids 3 0 # Bowel Movements 1 0 - Constitutional General appearance: Present: cooperative - Cardiovascular Rhythm: regular - Gastrointestinal Gastrointestinal Comment(s): S/NT/mild distention - Labs CBC & Chem 7: 06/07/20 05:26 06/07/20 05:26 Labs: Abnormal Lab Results - Last 24 Hours (Table) 06/07/20 06/07/20 Range/Units 05:26 05:26 Hgb 12.9 L (13.0-17.5) gm/dL BUN/Creatinine Ratio 10.00 L (12.00-20.00) Ratio Assessment and Plan Assessment: Partial SBO Plan: Both CT and SBFT showed no obstruction. Patient can start on reglan and a clear liquid diet. He should be able to be DC home on clears or fulls when tolerating tomorrow
[2020-06-07] MEDS: METOCLOPRAMIDE 5 MG/ML 2 ML VIAL IVP SCH ×3 (12:44→23:12)
[2020-06-07] MEDS: SODIUM CHLORIDE 0.9% 1,000 ML IV SCH ×2 (12:46→20:18)
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
[2020-06-08 03:54] LABS: Basophils % (A) 0 %; Eosinophils # (A) 0.5 k/uL (0-0.7); Eosinophils % (A) 7 %; HCT 40.7 % (39.0-53.0); HGB 13.1 gm/dL (13.0-17.5); Lymphocytes # (A) 2.3 k/uL (1.0-4.8); Lymphocytes % (A) 31 %; MCH 29.7 pg (25.0-35.0); MCHC 32.2 g/dL (31.0-37.0); MCV 92.2 fL (80.0-100.0); Mean Platelet Volume 7.3; Monocytes # (A) 0.5 k/uL (0-1.0); Monocytes % (A) 7 %; Neutrophils # (A) 4.1 k/uL (1.3-7.7); Neutrophils % (A) 54 %; Platelet Count 286 k/uL (150-450); RBC 4.42 m/uL (4.30-5.90); RDW 12.5 % (11.5-15.5); WBC 7.6 k/uL (3.8-10.6)
[2020-06-08] MEDS: METOCLOPRAMIDE 5 MG/ML 2 ML VIAL IVP SCH ×2 (06:26→13:05)
[2020-06-08] MEDS: PANTOPRAZOLE 40 MG/10 ML VIAL IVP SCH (07:34)
[2020-06-08] MEDS: LORATADINE 10 MG TAB PO SCH (07:35)
[2020-06-08 09:10] LABS: African American GFR (CKD) 116.6 (60.0-200.0); Anion Gap 9.1 mmol/L (4.00-12.00); BUN/Creat Ratio 12.5 Ratio (12.00-20.00); Calcium 8.7 mg/dL (8.7-10.3); Carbon Dioxide 26.9 mmol/L (21.6-31.8); Non-African American GFR(CKD) 100.6 (60.0-200.0)
--- NOTE | 2020-06-08 09:47 | P.PN ---
Subjective Progress Note Date: 06/08/20 Patient seen and examined at bedside. Had a bowel movement this morning. Tolerating clear liquid diet. Minimal abdominal distention. Objective - Vital Signs Vital signs: Vital Signs Temp 97.4 F L 06/08/20 05:00 Pulse 56 L 06/08/20 05:00 Resp 16 06/08/20 05:00 BP 138/74 06/08/20 05:00 Pulse Ox 97 06/08/20 07:37 Intake & Output 06/07/20 06/08/20 06/08/20 18:59 06:59 18:59 Intake Total 600 825 Balance 600 825 Weight 112.037 kg Intake: Intake, IV Titration 600 825 Amount Sodium Chloride 0.9% 1, 600 825 000 ml @ 75 mls/hr IV . [id number] [facility] Rx#:[id number] Other: Voiding Method Toilet Toilet - Constitutional General appearance: Present: cooperative, no acute distress - Gastrointestinal Gastrointestinal Comment(s): Soft, nontender, mildly distended, no rebound, no guarding - Psychiatric Psychiatric: Present: A&O x's 3 - Labs CBC & Chem 7: 06/08/20 03:23 06/08/20 03:23 Assessment and Plan (1) Small bowel obstruction Narrative/Plan: Small bowel obstruction appears to be resolved. Patient has evidence through small bowel follow-through and CT of the abdomen and pelvis showing no obvious obstruction at this time. Patient also was having bowel movements. Advance to full liquid diet. Recommended slow advancement of diet due to the patient's bloating and mild distention. Surgically stable for discharge. Current Visit: Yes Status: Acute Code(s): K56.609 - UNSP INTESTNL OBST, UNSP TO PARTIAL VERSUS COMPLETE OBST SNOMED Code(s): 763348741
[2020-06-08] MEDS: SODIUM CHLORIDE 0.9% 1,000 ML IV SCH (10:02)
[2020-06-08 12:28] VITALS: BP 153/79; PULSE 50; RESP 19; TEMP 98
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
== END 2020-06-08 15:18 | disposition home or self-care (01) | DRG 390 ==
LOC: EC 20:59 → 6NMEDSUR 23:31
PROVIDERS: ADMIT Hospitalist; ATTEND Hospitalist
PROC: 0D9670Z Drainage of Stomach with Drainage Device, Via Natural or Artificial Opening (ICD-10-PCS; principal; 2020-05-31)
DX: K91.31 Postprocedural partial intestinal obstruction (principal); I10 Essential (primary) hypertension; E66.9 Obesity, unspecified; E11.9 Type 2 diabetes mellitus without complications; R14.0 Abdominal distension (gaseous); M19.012 Primary osteoarthritis, left shoulder; R79.1 Abnormal coagulation profile; Z79.899 Other long term (current) drug therapy; Z88.0 Allergy status to penicillin; Z88.8 Allergy status to other drugs, medicaments and biological substances; Z82.49 Family history of ischemic heart disease and other diseases of the circulatory system; Z68.33 Body mass index [BMI] 33.0-33.9, adult; Z98.890 Other specified postprocedural states; Z87.828 Personal history of other (healed) physical injury and trauma
CPT/HCPCS: 36415; 71275; 74018; 74019; 74177; 74248; 80048; 80053; 81003; 83605; 83690; 84484; 85025; 85610; 85730; 93005; 94760; 96361; 96374; 96375; 99285

== ENCOUNTER → 2020-06-26 | Outpatient (CLI) | payer BC ==
--- NOTE | 2020-06-26 16:48 | XR ---
Right knee HISTORY: Right knee pain 3 views of the right knee, correlation prior exam 09/26/2012 There is spurring at the patellofemoral joint, medial compartment. Suprapatellar increased density bonner ggests joint effusion. Bone mineralization, joint spaces and alignment are maintained. IMPRESSION: Osteoarthritis. Joint effusion.
== END | disposition home or self-care (01) ==
LOC: RADXRYALE 14:13
PROVIDERS: ATTEND Physician Assistant Medical
DX: M17.11 Unilateral primary osteoarthritis, right knee (principal); M23.303 Other meniscus derangements, unspecified medial meniscus, right knee

== ENCOUNTER → 2020-10-15 | Outpatient (CLI) | payer BC, OTHER ==
--- NOTE | 2020-10-15 21:19 | MR ---
EXAMINATION TYPE: MR knee RT wo con DATE OF EXAM: 10/15/2020 COMPARISON: Radiographs 06/26/2020. HISTORY: Right knee pain for 2 months. TECHNIQUE: Multiplanar, multisequence imaging of the right knee is performed without IV contrast. FINDINGS: MEDIAL MENISCUS: Complex tear of the medial meniscus posterior horn and body with predominant horizon capo oblique component. LATERAL MENISCUS: Anterior and posterior horns are intact without tear. CRUCIATE LIGAMENTS: The anterior and posterior cruciate ligaments are intact and unremarkable. COLLATERAL LIGAMENTS: The medial collateral ligament and lateral collateral ligament complex are inta ct and unremarkable. EXTENSOR MECHANISM: Visualized quadriceps and patellar tendons are intact. EFFUSION: No significant suprapatellar joint effusion. POPLITEAL CYST: Moderate sized popliteal/otoole cyst with minimal surrounding edema. TRICOMPARTMENT SPACES: Mild to moderate narrowing of the medial compartment and mild of the patellofe moral. CARTILAGE: Moderate sized partial thickness chondral defect of the medial compartment and small of th e patellofemoral compartment. No significant chondral defect of the lateral compartment. BONE MARROW SIGNAL: No focal abnormal marrow signal is appreciated. OTHER: No additional significant abnormality is appreciated. IMPRESSION: Medial meniscal posterior horn/body tear. Moderate sized Otoole's cyst with suggestion of mild leaking. Mild to moderate chondromalacia with partial thickness chondral defects of the medial patellofemoral compartments.
== END | disposition home or self-care (01) ==
LOC: RADMRIMAIN 15:42
PROVIDERS: ATTEND Physician Assistant
DX: S83.241A Other tear of medial meniscus, current injury, right knee, initial encounter (principal); M71.21 Synovial cyst of popliteal space [Baker], right knee; M94.261 Chondromalacia, right knee; M25.861 Other specified joint disorders, right knee

== ENCOUNTER → 2021-11-20 | Outpatient (CLI) | payer BC ==
--- NOTE | 2021-11-20 18:04 | XR ---
Right hand HISTORY: Pain and stiffness 3 views the right hand Bone mineralization, joint spaces and alignment are maintained with exception of joint space loss the metacarpophalangeal joint of the third digit. There is no fracture or dislocation. Hooked osteophyte s noted at the distal second and third metacarpals. Some remodeling is present at the radiocarpal marla nt. No fracture or dislocation. IMPRESSION: Consider such entities as hemachromatosis and Crystal deposition arthropathy, osteoarthri tis
== END | disposition home or self-care (01) ==
LOC: RADXRYALE 15:42
PROVIDERS: ATTEND Physician Assistant Medical
DX: M19.041 Primary osteoarthritis, right hand (principal)

== ENCOUNTER → 2022-12-07 | Outpatient (CLI) | payer BC ==
--- NOTE | 2022-12-08 09:50 | CA ---
Transthoracic Echo Report Name: Devan Carrion Age: 57 Gender: M : 1965 Exam Date: 12/07/2022 13:59 Exam Location: [facility] Ht (in): 71 Wt (lb): 261 Ordering Physician: Wiley Kidd DO Attending/Referring Phys: Tamiko Beasley PAC Test Facility Engineer Apolinar Jiménez RDCS Procedure CPT: Indications: i35.0 Cardiac Hx: HTN; Obesity Technical Quality: Poor Contrast 1: Lumason Total Dose (mL): 4 Contrast 2: Total Dose (mL): MEASUREMENTS (Male / Female) Normal Values 2D ECHO LV Diastolic Diameter PLAX 4.2 cm 4.2 - 5.9 / 3.9 - 5.3 cm LV Systolic Diameter PLAX 2.6 cm LV Fractional Shortening PLAX 38.5 % IVS Diastolic Thickness 1.1 cm 0.6 - 1.0 / 0.6 - 0.9 cm IVS Systolic Thickness 1.9 cm LVPW Diastolic Thickness 1.1 cm 0.6 - 1.0 / 0.6 - 0.9 cm LVPW Systolic Thickness 1.8 cm LV Relative Wall Thickness 0.5 LVOT Diameter 1.8 cm LA Systolic Diameter LX 2.9 cm 3.0 - 4.0 / 2.7 - 3.8 cm LV Diastolic Volume MOD BP 142.3 cm??? 67 - 155 / 56 - 104 cm??? LV Systolic Volume MOD BP 74.7 cm??? 22 - 58 / 19 - 49 cm??? LV Ejection Fraction MOD BP 47.5 % >= 55 % LV Stroke Volume MOD BP 67.6 cm??? LV Diastolic Volume MOD 4C 146.4 cm??? LV Systolic Volume MOD 4C 61.2 cm??? LV Ejection Fraction MOD 4C 58.2 % LV Stroke Volume MOD 4C 85.2 cm??? LV Diastolic Length 4C 10.3 cm LV Systolic Length 4C 8.8 cm LV Diastolic Volume MOD 2C 136.5 cm??? LV Systolic Volume MOD 2C 88.4 cm??? LV Ejection Fraction MOD 2C 35.3 % LV Stroke Volume MOD 2C 48.1 cm??? LV Diastolic Length 2C 10.2 cm LV Systolic Length 2C 8.4 cm M-MODE Aortic Root Diameter MM 3.1 cm LA Systolic Diameter MM 3.5 cm LA Ao Ratio MM 1.1 AV Cusp Separation MM 1.6 cm DOPPLER AV Peak Velocity 198.0 cm/s AV Peak Gradient 15.7 mmHg LVOT Peak Velocity 118.8 cm/s LVOT Peak Gradient 5.6 mmHg AV Area Cont Eq pk 1.6 cm??? MV Deceleration [place] 260.2 cm/s??? Mitral E Point Velocity 57.3 cm/s Mitral A Point Velocity 61.8 cm/s Mitral E to A Ratio 0.9 MV Deceleration Time 220.3 ms MV E' Velocity 7.4 cm/s Mitral E to MV E' Ratio 7.8 PV Peak Velocity 117.2 cm/s PV Peak Gradient 5.5 mmHg FINDINGS Left Ventricle Left ventricular ejection fraction is estimated at 55-60 %. Mild concentric left ventricular hypertrophy. Grade 1 diastolic dysfunction. Normal basal systolic function. Right Ventricle Normal right ventricular size and function. Right Atrium Normal right atrial size. Left Atrium Mild left atrial dilatation. Mitral Valve Mitral valve thickened. Trace to mild mitral regurgitation. Aortic Valve Trileaflet aortic valve. Focal thickening of the aortic valve cusps. Diffuse thickening (sclerosis) of the aortic valve cusps without reduced excursion. Tricuspid Valve Trace to mild tricuspid regurgitation. Pulmonic Valve Trace pulmonic regurgitation. Pericardium Normal pericardium. No pericardial effusion. Aorta Normal size aortic root and proximal ascending aorta. CONCLUSIONS Normal LV size and systolic function with mild concentric LVH. Mild left atrial enlargement. No significant abnormality in the Doppler exam. No pericardial effusion Previewed by: Dr. Bryanna Weiss MD (Electronically Signed) Final Date: 08 December 2022 09:49
== END | disposition home or self-care (01) ==
LOC: RADECHMAIN 13:52
PROVIDERS: ATTEND Family Medicine
DX: I35.0 Nonrheumatic aortic (valve) stenosis (principal); I11.9 Hypertensive heart disease without heart failure
CPT/HCPCS: 93306; Q9950

== ENCOUNTER 2024-04-25 05:35 | Emergency (ER) | payer BC ==
[2024-04-25] MEDS ORDERED: SODIUM CHLORIDE 0.9% 1,000 ML BAG ONE (06:10)
[2024-04-25] MEDS ORDERED: KETOROLAC 15 MG/ML 1 ML VIAL ONE (06:16)
[2024-04-25] MEDS ORDERED: ONDANSETRON 4 MG/2 ML VIAL ONE (06:16)
[2024-04-25] MEDS ORDERED: MORPHINE SULFATE 4 MG/ML SYRINGE ONE (06:16)
--- NOTE | 2024-05-16 13:49 | CT ---
Patient: Devan Carrion Ordering Physician: Unknown, Unknown ID: [id number] Phone, Pager: Phone: N/A Pager: N/A : 1965 Age/Gender: 59Y, M Primary Location: N/A Procedure: ABD/PEL W/ Study Da te: 04/25/2024 7:14:01 AM EXAMINATION TYPE: CT abdomen pelvis w con DATE OF EXAM: 04/25/2024 COMPARISON: 06/06/2020 HISTORY: Abdominal pain CONTRAST: CT scan of the abdomen and pelvis is performed without Oral Contrast and with IV Contrast, patient in jected with 100 mL of Isovue 300. FINDINGS: LUNG BASES-: No visible nodule. No infiltrate. LIVER/GB: No calcified gallstones. No space occupying hepatic lesion. Biliary tree is of normal ca liber. PANCREAS: No inflammation. No distinct mass. SPLEEN: No splenic enlargement. No lesion seen. ADRENALS: No nodule. No thickening. KIDNEYS/BLADDER: Tiny 3 mm calculus resides within the urinary bladder adjacent to the right UVJ. The re is mild to to minimal hydronephrosis on the right. I suspect a recently passed calculus. No renal calculi seen. No distinct renal mass. Urinary bladder grossly unremarkable. BOWEL: Normal appendix. Normal bowel caliber. No inflammation. GENITAL ORGANS: No gross abnormality. LYMPH NODES: No greater than 1cm abdominal or pelvic lymph nodes are appreciated. AORTA: No significant abnormality. OSSEOUS STRUCTURES: No significant abnormality is seen. OTHER: No significant additional abnormality is seen. IMPRESSION: 1. Tiny 3 mm calculus resides within the urinary bladder adjacent to the right UVJ. There is mild to to minimal hydronephrosis on the right. I suspect a recently passed calculus.
== END 2024-04-25 12:20 | disposition home or self-care (01) ==
LOC: EC 05:35
CPT/HCPCS: 74177; 96361; 96374; 96375; 99284

== ENCOUNTER 2024-10-08 02:30 | Emergency (ER) | payer BC, OTHER ==
[2024-10-08 02:37] VITALS: TEMP 98.3
[2024-10-08] MEDS: methylPREDNISolone SOD SUCCI 125 MG/2 ML VIAL IM ONE (02:57)
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
[2024-10-08] MEDS: IPRATROPIUM-ALBUTEROL 3 ML NEB INHALATION STA ×2 (03:15→06:00)
[2024-10-08 03:30] LABS: Influenza A Detected (Not Detectd); Influenza B Not Detected (Not Detectd); RSV Not Detected (Not Detectd)
[2024-10-08] MEDS: SODIUM CHLORIDE 0.9% 500 ML 500 ML IV STA (03:35)
[2024-10-08 03:39] LABS: Basophils % (A) 0 %; Eosinophils % (A) 1 %; HCT 39.6 % (39.0-53.0); Lymphocytes # (A) 1.8 k/uL (1.0-4.8); Lymphocytes % (A) 27 %; MCH 29.1 pg (25.0-35.0); MCHC 32.7 g/dL (31.0-37.0); Mean Platelet Volume 7.8; Monocytes # (A) 0.4 k/uL (0-1.0); Monocytes % (A) 6 %; Neutrophils # (A) 4.2 k/uL (1.3-7.7); Neutrophils % (A) 63 %; Platelet Count 147 k/uL (150-450); RBC 4.45 m/uL (4.30-5.90); RDW 12.2 % (11.5-15.5); WBC 6.7 k/uL (3.8-10.6)
[2024-10-08 03:42] VITALS: RESP 18
[2024-10-08 03:50] LABS: ALT 22 U/L (4-49); AST 25 U/L (17-59); African American GFR (CKD) 89 (>60 ml/min/1.73 sqM); Albumin 3.6 g/dL (3.5-5.0); Alkaline Phosphatase 69 U/L (38-126); Anion Gap 8 mmol/L; Blood Urea Nitrogen 19 mg/dL (9-20); Calcium 8.5 mg/dL (8.4-10.2); Carbon Dioxide 30 mmol/L (22-30); Chloride 97 mmol/L (98-107); Glucose 126 mg/dL (74-99); Non-African American GFR(CKD) 77 (>60 ml/min/1.73 sqM); Potassium 3.7 mmol/L (3.5-5.1); Sodium 135 mmol/L (137-145); Total Bilirubin 0.4 mg/dL (0.2-1.3); Total Protein 6.5 g/dL (6.3-8.2)
--- NOTE | 2024-10-08 04:43 | XR ---
EXAM: XR Chest, 2 Views CLINICAL HISTORY: ITS.REASON XR Reason: cough TECHNIQUE: Frontal and lateral views of the chest. COMPARISON: No relevant prior studies available. FINDINGS: Lungs: No consolidation or mass. Pleural space: No effusion. Heart: Mild cardiomegaly. Bones/joints: No acute findings. IMPRESSION: No acute cardiopulmonary process.
[2024-10-08 04:53] LABS: Partial Thromboplastin Time 26.3 sec (22.0-30.0); Prothrombin Time 10.9 sec (10.0-12.5)
[2024-10-08 06:02] VITALS: PULSE 64
--- NOTE | 2024-10-08 07:18 | CT ---
EXAMINATION TYPE: CT angio chest CT DLP: 484.6 mGycm, Automated exposure control for dose reduction was used. DATE OF EXAM: 10/08/2024 6:01 AM COMPARISON: Chest radiograph 06/01/2020, CTA chest 05/31/2020 CLINICAL INDICATION:Male, 59 years old with history of elevated dimer, hemoptysis; Pt. c/o intermitte nt cough, ROBB, and fevers. Influenza positive. TECHNIQUE/CONTRAST: CTA scan of the thorax is performed with IV Contrast, patient injected with 100 mL of Isovue 370, pul monary embolism protocol. MIP images are created and reviewed. FINDINGS: Pulmonary Artery: There is no evidence for a filling defect within the pulmonary vasculature to sugge st acute pulmonary embolism. The pulmonary artery is of normal size. Lungs/Pleura: No pleural effusion or pneumothorax. Few groundglass opacities within the right upper l obe and to a lesser degree in the left lower lobe. Diffuse bronchial wall thickening. Medial right lo wer lobe calcified granuloma Airway: Large airways are patent. Heart: Heart is within normal limits for size.. No pericardial effusion. Small aortic valvular calcif ications. Vasculature: No evidence of aortic aneurysm. Mediastinum: No evidence of adenopathy. Musculoskeletal: No acute osseous abnormalities. Mild multilevel degenerative disc disease. Soft Tissues: Unremarkable. Lower neck: No significant findings. Upper Abdomen: Small hiatal hernia. IMPRESSION: 1. No evidence of pulmonary embolism. 2. Few patchy ground glass opacities within the right upper lobe and left lower lobe with diffuse bro nchial wall thickening consistent with reported influenza. [facility], , 10/08/2024 7:16 AM
[2024-10-08 07:48] VITALS: BP 135/64
== END 2024-10-08 07:47 | disposition home or self-care (01) ==
LOC: EC 02:30
DX: J20.9 Acute bronchitis, unspecified (principal); J10.1 Influenza due to other identified influenza virus with other respiratory manifestations; Z88.0 Allergy status to penicillin; Z88.1 Allergy status to other antibiotic agents
CPT/HCPCS: 36415; 94640 ×2; 93005; 85379; 80053; 84484; 85025; 85610; 85730; 87636; 71046; 71275; 99284; 96372; Q9967; J2919